=== PATIENT | female | born 1950 | race Two or more races ===

== ENCOUNTER 2017-02-16 10:27 | Emergency (ER) | payer MEDICAID ==
[~2017-02-16] VITALS: Ht 154.9 cm; Wt 46.0 kg
[2017-02-16] MEDS ORDERED: SODIUM CHLORIDE 0.9% 1,000 ML IV ONE (11:56)
[2017-02-16] MEDS ORDERED: SODIUM CHLORIDE 0.9% 1,000ML IVBOLUS ONE (12:00)
[2017-02-16] MEDS ORDERED: ONDANSETRON 2MG/ML, 2ML IVPush ONE (12:00)
[2017-02-16] MEDS ORDERED: FAMOTIDINE 20 MG/2 ML IVP ONE (12:00)
[2017-02-16] MEDS ORDERED: SODIUM CHLORIDE FLUSH 10ML SYR IVF ONE (12:00)
[2017-02-16 12:22] LABS: HEMATOCRIT 37.5 % (34.6-47.8); HEMOGLOBIN 12.6 g/dL (11.7-16.4); WHITE BLOOD COUNT 9.3 x10^3/uL (3.4-10)
[2017-02-16 12:26] LABS: BLOOD UREA NITROGEN 10 mg/dL (7-18)
[2017-02-16 12:29] LABS: ASPARTATE AMINO TRANSFERASE 52 U/L (15-37)
[2017-02-16] MEDS ORDERED: ONDANSETRON 2MG/ML, 2ML ONE (12:35)
[2017-02-16] MEDS ORDERED: FAMOTIDINE 20 MG/2 ML ONE (12:35)
[2017-02-16 12:47] LABS: PATH.CAST-FLAG NOT PRESENT; SPERM-FLAG NOT PRESENT; SRC-FLAG NOT PRESENT; XTAL-FLAG NOT PRESENT; YLC-FLAG NOT PRESENT
[2017-02-16] MEDS ORDERED: PLEASE ENTER ALLERGIES MC SCH ×2 (13:00)
[2017-02-16 13:37] VITALS: BP 121/69
== END 2017-02-16 14:23 | disposition home or self-care (01) ==
LOC: ED 12:27
DX: K52.9 Noninfective gastroenteritis and colitis, unspecified (principal); E86.0 Dehydration; E87.1 Hypo-osmolality and hyponatremia; I10 Essential (primary) hypertension
CPT/HCPCS: 36415; 80053; 81001; 83690; 85025; 87086; 96361; 96374; 96375; 99284; J2405; J7030; S0028

== ENCOUNTER 2017-11-27 05:30 | Emergency (ER) | payer MEDICARE ==
[~2017-11-27] VITALS: Ht 152.4 cm; Wt 49.4 kg
[~2017-11-27 05:30] MED LIST: LOSA100T7 PO; LOSA50TA7 PO
[2017-11-27] MEDS ORDERED: ASPIRIN 81 MG TABLET EC ONE (06:21)
[2017-11-27] MEDS ORDERED: ONDANSETRON ODT 4 MG ONE (06:21)
[2017-11-27] MEDS ORDERED: NITROGLYCERIN SINGLE TAB 0.4 MG SL ONE (06:21)
[2017-11-27 06:27] LABS: BASOPHILS % (AUTO) 0 % (0-1); EOSINOPHILS # (AUTO) 0.03 x10^3/uL (0-0.4); EOSINOPHILS % (AUTO) 1 % (1-7); LYMPHOCYTES % (AUTO) 26 % (22-44); MD NO; MEAN CORPUSCULAR HEMOGLOBIN 32.2 pg (27.0-34.8); MEAN CORPUSCULAR HGB CONC 33.7 g/dL (32.4-35.8); MEAN CORPUSCULAR VOLUME 95.6 fL (80-100); MEAN PLATELET VOLUME 7.7 fL (7.4-10.4); MONOCYTES # (AUTO) 0.24 x10^3/uL (0.2-0.8); MONOCYTES % (AUTO) 5 % (2-9); NEUTROPHILS % (AUTO) 68 % (42-75); PLATELET COUNT 283 x10^3/uL (130-400); RED BLOOD COUNT 3.56 x10^6/uL (3.82-5.3); RED CELL DISTRIBUTION WIDTH 12.8 % (9.6-15.2)
[2017-11-27] MEDS ORDERED: ASPIRIN 81 MG TABLET CHEW PO ONE (06:30)
[2017-11-27] MEDS ORDERED: ONDANSETRON ODT 4 MG PO ONE (06:30)
[2017-11-27] MEDS ORDERED: SODIUM CHLORIDE FLUSH 10ML SYR IVF ONE (06:30)
[2017-11-27] MEDS ORDERED: NITROGLYCERIN SINGLE TAB 0.4 MG SL PRN (06:30)
[2017-11-27 06:39] LABS: ALBUMIN 3.8 g/dL (3.4-5.0); ANION GAP 9 mmol/L (5-15); CALCIUM 8.7 mg/dL (8.5-10.1); CHLORIDE 103 mmol/L (98-107); CREATININE 0.83 mg/dL (0.55-1.02)
[2017-11-27 06:43] LABS: TROPONIN I < 0.015 ng/mL (0.000-0.045)
[2017-11-27] MEDS ORDERED: LORazepam 1MG TABLET ONE (06:58)
[2017-11-27] MEDS ORDERED: LORazepam 1MG TABLET PO ONE (07:00)
[2017-11-27 07:45] VITALS: BP 133/77
== END 2017-11-27 09:02 | disposition home or self-care (01) ==
LOC: ED 06:04
DX: R06.00 Dyspnea, unspecified (principal); M54.6 Pain in thoracic spine; F41.1 Generalized anxiety disorder; R07.89 Other chest pain; I10 Essential (primary) hypertension
CPT/HCPCS: 36415; 71045; 80048; 82040; 84484; 85025; 93005; 99285; Q0162

== ENCOUNTER 2017-12-10 22:57 | Observation (INO) | payer MEDICARE ==
[~2017-12-10] VITALS: Ht 154.9 cm; Wt 60.1 kg
[2017-12-10 23:54] LABS: BASOPHILS # (AUTO) 0.03 x10^3/uL (0-0.1); BASOPHILS % (AUTO) 1 % (0-1); EOSINOPHILS # (AUTO) 0.07 x10^3/uL (0-0.4); EOSINOPHILS % (AUTO) 1 % (1-7); LYMPHOCYTES % (AUTO) 41 % (22-44); MD NO; MEAN CORPUSCULAR HEMOGLOBIN 33.1 pg (27.0-34.8); MEAN CORPUSCULAR HGB CONC 34.4 g/dL (32.4-35.8); MEAN CORPUSCULAR VOLUME 96.2 fL (80-100); MEAN PLATELET VOLUME 7.8 fL (7.4-10.4); MONOCYTES # (AUTO) 0.49 x10^3/uL (0.2-0.8); MONOCYTES % (AUTO) 9 % (2-9); NEUTROPHILS % (AUTO) 48 % (42-75); PLATELET COUNT 243 x10^3/uL (130-400); RED BLOOD COUNT 3.57 x10^6/uL (3.82-5.3); RED CELL DISTRIBUTION WIDTH 12.8 % (9.6-15.2)
[2017-12-11] MEDS ORDERED: MORPHINE SULFATE 4 MG/ML, 1ML IVPush ONE
[2017-12-11] MEDS ORDERED: SODIUM CHLORIDE FLUSH 10ML SYR IVF ONE
[2017-12-11 00:03] LABS: ALANINE AMINOTRANSFERASE 21 U/L (12-78); ALBUMIN 3.8 g/dL (3.4-5.0); ANION GAP 8 mmol/L (5-15); CALCIUM 8.7 mg/dL (8.5-10.1); CHLORIDE 102 mmol/L (98-107); CREATININE 0.87 mg/dL (0.55-1.02)
[2017-12-11 00:08] LABS: ALKALINE PHOSPHATASE 107 U/L (45-117); BILIRUBIN,TOTAL 0.7 mg/dL (0.2-1.0); TOTAL PROTEIN 8.5 g/dL (6.4-8.2)
[2017-12-11 00:09] LABS: TROPONIN I < 0.015 ng/mL (0.000-0.045)
[2017-12-11] MEDS ORDERED: MAALOX/HYOSCYAMINE/LIDOCAINE 45 ML BTL ONE (01:56)
[2017-12-11] MEDS ORDERED: MAALOX/HYOSCYAMINE/LIDOCAINE 45 ML BTL PO ONE (02:00)
[2017-12-11] MEDS ORDERED: D5%-0.45NACL+KCL 20MEQ 1,000 ML IV SCH (02:41)
[2017-12-11] MEDS ORDERED: LABETALOL 5MG/ML, 20ML IVPush PRN (03:00)
[2017-12-11] MEDS ORDERED: METHOCARBAMOL 500 MG TABLET PO PRN (03:00)
[2017-12-11] MEDS ORDERED: ENALAPRILAT 1.25 MG/ML, 2ML IVPush PRN (03:00)
[2017-12-11] MEDS ORDERED: ACETAMINOPHEN 325 MG TABLET PO PRN (03:00)
[2017-12-11] MEDS ORDERED: ONDANSETRON 2MG/ML, 2ML IVPush PRN (03:00)
[2017-12-11] MEDS ORDERED: TEMAZEPAM 15 MG CAPSULE PO PRN (03:00)
[2017-12-11] MEDS ORDERED: ONDANSETRON ODT 4 MG PO PRN (03:00)
[2017-12-11] MEDS ORDERED: LORazepam 1MG TABLET PO PRN (03:00)
[2017-12-11 03:10] VITALS: BP 144/84
[2017-12-11 03:29] VITALS: BP 144/84
[2017-12-11 03:40] LABS: TROPONIN I < 0.015 ng/mL (0.000-0.045)
[2017-12-11 07:38] VITALS: BP 150/77
[2017-12-11] MEDS ORDERED: LOSARTAN 50MG TABLET PO SCH (09:00)
[2017-12-11] MEDS ORDERED: FAMOTIDINE 20 MG/2 ML IVPush SCH (09:00)
[2017-12-11] MEDS ORDERED: REGADENOSON 0.4 MG/5 ML SYRINGE ONE (09:05)
[2017-12-11 09:54] LABS: TROPONIN I < 0.015 ng/mL (0.000-0.045)
[2017-12-11 12:30] LABS: MICROSCOPIC AUTO
[2017-12-11 12:31] LABS: CULTURE INDICATED? YES
[2017-12-11 14:32] VITALS: BP 122/69
[2017-12-11] MEDS ORDERED: HYDR25TA11 PO (15:05)
== END 2017-12-11 16:40 | disposition home or self-care (01) ==
LOC: ED 12-11 01:17 → EDIP 12-11 02:01 → INTOOBSV 12-11 02:01 → 5SO 12-11 03:04
PROVIDERS: ADMIT Internal Medicine; ATTEND Internal Medicine
DX: R07.89 Other chest pain (principal); K21.9 Gastro-esophageal reflux disease without esophagitis; I10 Essential (primary) hypertension; E87.1 Hypo-osmolality and hyponatremia; E87.6 Hypokalemia; F41.0 Panic disorder [episodic paroxysmal anxiety]; F41.1 Generalized anxiety disorder; K59.00 Constipation, unspecified; Z79.899 Other long term (current) drug therapy
CPT/HCPCS: 36415; 71045; 76700; 78452; 80053; 81001; 83690; 83880; 84484; 85025; 85379; 87086; 93005; 93017; 96365; 96366; 96375; 99285; A9502; C9898; G0378; J2785; J3480; Q0162; S0028